=== PATIENT | male | born 1995 | race African-American/Black ===

== ENCOUNTER 2018-02-11 10:54 | Emergency (ER) | payer SELFPAY ==
[~2018-02-11] VITALS: Ht 170.2 cm; Wt 73.0 kg
[2018-02-11] MEDS ORDERED: IBUPROFEN 600MG TABLET PO ONE (13:15)
[2018-02-11 13:50] VITALS: BP 126/84
== END 2018-02-11 14:48 | disposition home or self-care (01) ==
LOC: ER 14:22
DX: J02.9 Acute pharyngitis, unspecified (principal); R03.0 Elevated blood-pressure reading, without diagnosis of hypertension
CPT/HCPCS: 87070; 87430; 99283; 99284

== ENCOUNTER 2019-10-16 09:59 | Emergency (ER) | payer SELFPAY ==
[~2019-10-16] VITALS: Ht 172.7 cm; Wt 69.0 kg
[2019-10-16] MEDS ORDERED: KETOROLAC 60MG/2ML VIAL IM STA (10:49)
[2019-10-16] MEDS ORDERED: PENICILLIN G BENZATHINE 1,200,000 UNITS/2ML SYR IM ONE (11:00)
[2019-10-16 11:13] VITALS: BP 133/66
== END 2019-10-16 17:41 | disposition home or self-care (01) ==
LOC: ER 10:09
DX: J02.9 Acute pharyngitis, unspecified (principal); Z98.890 Other specified postprocedural states
CPT/HCPCS: 87430; 96372; 99284; J0561; J1885

== ENCOUNTER 2021-01-13 07:36 | Emergency (ER) | payer MEDICAID ==
[~2021-01-13] VITALS: Ht 170.2 cm; Wt 67.0 kg
[2021-01-13] MEDS ORDERED: AZIT250T12 MT (08:13)
[2021-01-13] MEDS ORDERED: IBUP-2029 MT (08:13)
[2021-01-13] MEDS ORDERED: AZITHROMYCIN 500 MG TABLET PO ONE (08:15)
[2021-01-13] MEDS ORDERED: IBUPROFEN 600MG TABLET PO ONE (08:15)
[2021-01-13] MEDS ORDERED: DEXAMETHASONE 10 MG/ML VIAL IV ONE (08:15)
[2021-01-13 08:37] VITALS: BP 122/54
== END 2021-01-13 09:08 | disposition home or self-care (01) ==
LOC: ER 07:36
DX: J02.9 Acute pharyngitis, unspecified (principal)
CPT/HCPCS: 96374; 99283; J1100

== ENCOUNTER 2021-01-24 07:33 | Emergency (ER) | payer MEDICAID ==
[~2021-01-24] VITALS: Ht 175.3 cm; Wt 75.0 kg
[~2021-01-24 07:33] MED LIST: AZIT250T12 MT; IBUP-2029 MT
[2021-01-24] MEDS ORDERED: KETOROLAC 60MG/2ML VIAL IM ONE (08:00)
[2021-01-24] MEDS ORDERED: IOHEXOL-350 100 ML BOTTLE ONE (12:40)
[2021-01-24] MEDS ORDERED: TOPUD PO (13:06)
[2021-01-24] MEDS ORDERED: AMOX-424 PO (13:06)
[2021-01-24 13:38] VITALS: BP 130/84
== END 2021-01-24 13:38 | disposition home or self-care (01) ==
LOC: ER 07:33
DX: J39.1 Other abscess of pharynx (principal); F12.10 Cannabis abuse, uncomplicated; Z98.890 Other specified postprocedural states
CPT/HCPCS: 70490; 70491; 96372; 99285; J1885; Q9967; Z7610

== ENCOUNTER 2021-09-20 12:14 | Emergency (ER) | payer SELFPAY ==
[~2021-09-20] VITALS: Ht 175.3 cm; Wt 72.0 kg
[~2021-09-20 12:14] MED LIST changes: +AMOX-424 PO; +TOPUD PO
[2021-09-20 12:21] VITALS: BP 114/66
[2021-09-20] MEDS ORDERED: IBUPROFEN 400MG TABLET PO ONE (13:15)
== END 2021-09-20 13:47 | disposition home or self-care (01) ==
LOC: ER 12:14
DX: J02.9 Acute pharyngitis, unspecified (principal); F12.10 Cannabis abuse, uncomplicated
CPT/HCPCS: 99283

== ENCOUNTER 2025-05-12 08:01 | Emergency (ER) | payer SELFPAY ==
[~2025-05-12] VITALS: Ht 175.3 cm; Wt 73.0 kg
[~2025-05-12 08:01] MED LIST changes: +IBUP-1455 MT; -IBUP-2029 MT
[2025-05-12 08:07] VITALS: O2SAT 98
[2025-05-12 08:10] VITALS: TEMP 36.7; O2SAT 100
[2025-05-12] MEDS ORDERED: TOPUD PO (08:19)
[2025-05-12] MEDS ORDERED: AMOX1TAB16 MT (08:19)
[2025-05-12] MEDS ORDERED: IBUP-2028 MT (08:19)
[2025-05-12 08:40] VITALS: BP 127/70; PULSE 57; RESP 18
[2025-05-12] MEDS: KETOROLAC 30MG/ML VIAL IM ONE (08:40)
[2025-05-12] MEDS: AMOXICILLIN/POTASSIUM CLAVULANATE 875/125MG TAB PO ONE (08:40)
[2025-05-12 08:41] VITALS: TEMP 98
[2025-05-12] MEDS: ACETAMINOPHEN 325MG TABLET PO ONE (08:41)
== END 2025-05-12 08:43 | disposition home or self-care (01) ==
LOC: ER 08:01
DX: K02.9 Dental caries, unspecified (principal); R20.0 Anesthesia of skin; Z87.891 Personal history of nicotine dependence; F10.90 Alcohol use, unspecified, uncomplicated; F12.90 Cannabis use, unspecified, uncomplicated; Z79.899 Other long term (current) drug therapy; Y90.9 Presence of alcohol in blood, level not specified
CPT/HCPCS: 99283; 96372; J1885